=== PATIENT | male | born 1970 | race Two or more races ===

== ENCOUNTER 2016-11-25 10:01 | Emergency (ER) | payer MEDICAID ==
[~2016-11-25] VITALS: Ht 182.9 cm; Wt 102.1 kg
[2016-11-25 10:56] VITALS: BP 171/117
[2016-11-25] MEDS ORDERED: methylPREDNISolone SOD SUCC 125 MG/2 ML VL IM ONE (11:30)
[2016-11-25] MEDS ORDERED: KETOROLAC TROMETH 60MG/2ML VIAL IM ONE (11:30)
== END 2016-11-25 11:47 | disposition home or self-care (01) ==
LOC: ER 10:01
DX: M10.072 Idiopathic gout, left ankle and foot (principal); W22.8XXA Striking against or struck by other objects, initial encounter; Y93.89 Activity, other specified; Y92.89 Other specified places as the place of occurrence of the external cause; Y99.8 Other external cause status
CPT/HCPCS: 73610; 73630; 96372; 99284; J1885; J2930